=== PATIENT | female | born 1960 | race Caucasian/White ===

== ENCOUNTER 2016-08-22 11:41 | Inpatient (IN) | payer OTHER ==
--- NOTE | 2016-09-04 09:08 | HP ---
DATE OF CLINIC: 08/10/2016 VALENTINE GILBERT : 1960 PLANNED PROCEDURE: Left Total Knee Arthroplasty DATE OF SURGERY: September 05, 2016 SURGEON: Kyrie Chin M.D. HISTORY OF PRESENT ILLNESS Valentine Gilbert is a 56 year old female. * Medication list reviewed with patient allergy list reviewed with patient. This is a 56-year-old female referred over from [facility] [facility] for chronic bilateral knee pain. She has been seen by [facility] in the past. She had an arthroscopy on her left knee for partial meniscectomy. She has not had complete resolution of her symptoms. At this point she has activity limiting pain in her knee that has been recalcitrant to non-operative measures and is interested in pursuing definitive management. She rates her pain as bad as a 5-6/10 at times and it is worse with activity. After discussion and review of treatment options the patient has elected to proceed with surgery and presents today preoperatively. PAST MEDICAL AND SURGICAL HISTORY: Her past medical and surgical history are as documented. She had a previous partial medial meniscectomy and chondroplasty of the medial femoral condyle and medial patellar facet with Dr. Munoz in 2013. Otherwise medications and allergies are as documented. CURRENT MEDICATION * Atorvastatin Calcium 10 MG Tablet 1 once a day 30 days, 0 refills * BuPROPion HCl ER (XL) 150 MG Tablet Extended Release 24 Hour 1 once a day 90 days, 0 refills * Triamcinolone Acetonide 0.1 % Ointment as needed 30 days, 0 refills * Tylenol 8 Hour Arthritis Pain 650 MG Tablet Extended Release 2 twice a day 0 days, 0 refills * Vitamin C 500 MG Capsule 1 once a day 0 days, 0 refills * Vitamin D 1000 UNIT Tablet 1 twice a day 0 days, 0 refills * Wellbutrin SR 150 MG Tablet Extended Release 12 Hour 1 once a day 0 days, 0 refills PAST MEDICAL/SURGICAL HISTORY Reported: Medical: Cholesterol problems. History of Arthritis in knees. Surgical / Procedural: Prior surgery Hand- Long trigger finger release Apr 01 and Arthroscopy Left knee with partial medial meniscectomy and chondroplasty of medial femoral condyle & the medial patellar facet 04/07/[address] Alberto Munoz at [facility]. Negative past medical hx as of 02/16/14. SOCIAL HISTORY Behavioral: Never smoked. Smoking status: Never smoker. 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 Work: Occupation Contract Clerk. ALLERGIES * No Known Allergies FAMILY HISTORY 3 children living Family medical history Mother- Stroke Cancer father Osteoarthritis mother REVIEW OF SYSTEMS No recent constitutional symptoms to include fevers and chills. No recent cardiovascular symptoms to include chest pain or palpitations. No recent respiratory symptoms to include shortness of breath or recent infections. PHYSICAL FINDINGS * Vitals taken 08/10/2016 03:00 pm BP-Sitting R 120/74 mmHg Pulse Rate-Sitting 91 bpm Temp-Oral 98.4 F Height 64.5 in Weight 188 lbs 6.4 oz Body Mass Index 31.8 kg/m2 Body Surface Area 1.92 m2 Pain Level 4 Ears, Nose, Throat: * ENT: normal. Lungs: * Clear to auscultation. Cardiovascular: Heart Rate and Rhythm: * Normal. Abdomen: * Normal. Neurological: Motor: * Dominant Hand = Right Hand. Patient is a well-developed, well-nourished female in no acute distress. They are awake, alert and conversant throughout the encounter. CARDIOVASCULAR: Intact peripheral pulses on bilateral lower extremities. No significant edema on inspection of bilateral lower extremities. NEUROLOGIC: Patient had intact coordinated composite motion of the bilateral lower extremities and sensation intact to light touch in all distributions of bilateral lower extremities. PSYCHIATRIC: Patient was oriented to person, place and time and displayed appropriate mood and affect during the encounter. SKIN: Exam of the skin on bilateral lower extremities showed no significant scars, lesions, rashes or masses. FOCUSED MUSCULOSKELETAL EXAM: The patient ambulates without antalgia. She has normal resting station of the bilateral hips, knees, ankles today. Her left knee shows mild effusion, no erythema or ecchymosis. She has tenderness to palpation in the medial joint line and on patellar grind she has both mechanical symptoms and pain with patellar grind. She has a bit of valgus pseudo-laxity. She is stable to varus stress. She has negative anterior and posterior drawer. She is able to perform a straight leg raise. She has 5/5 strength in flexion and extension of the knee. A warm and well perfused leg distally with intact sensation and a normal resting tone. TESTS * Test: CULTURE, MRSA Report Date: 08/10/2016 CULTURE, MRSA See Report IMAGING: X-rays show arthritic changes of her medial compartment and patellofemoral compartment with some mild osteoarthritis and a varus malalignment. She has no fractures or dislocations. ASSESSMENT A 56-year-old female with activity limiting tricompartmental arthrosis of her left knee that has been recalcitrant to non-operative measures. PREVIOUS TESTS * Test: PROTHROMBIN TIME Report Date: 08/08/2016 PROTIME 10.7 s INR 1.02 * Test: PARTIAL THROMBOPLASTIN TIME Report Date: 08/08/2016 APTT 27.1 s * Test: URINALYSIS WITH MICROSCOPIC Report Date: 08/08/2016 EPITHELIAL CELL 1-2 WBC 2-3 GLUCOSE NEGATIVE BACTERIA RARE PH,URINE 6.0 SPEC. GRAVITY 1.010 KETONE NEGATIVE NITRITE NEGATIVE RBC 0-1 BLOOD TRACE BILIRUBIN NEGATIVE APPEARANCE HAZY PROTEIN NEGATIVE COLOR YELLOW LEUK ESTERASE 1+ UROBILINOGEN NORMAL * Test: COMPREHENSIVE METABOLIC PANEL Report Date: 08/08/2016 ALT/SGPT 24 U/L ALBUMIN 4.3 g/dL ALB/GLOB RATIO 1.4 BUN 15 mg/dL BUN/CREAT RATIO 21 High CALCIUM 9.9 mg/dL GLUCOSE 123 mg/dL High CREATININE 0.7 mg/dL SODIUM 137 meq/L POTASSIUM 3.7 meq/L CHLORIDE 101 meq/L CARBON DIOXIDE 30 meq/L ANION GAP 10 meq/L TOT PROTEIN 7.4 g/dL GLOBULIN 3.1 g/dL BILI,TOTAL 0.7 mg/dL AST/SGOT 22 U/L ALK PHOSPHATASE 61 U/L GFR 87 * Test: CBC NO DIFF Report Date: 08/08/2016 WBC 7.8 10*3/mL RBC 4.67 10*6/uL MCH 30.6 pg MCHC 34.2 g/dL RDW 12.3 % MCV 89.5 fL PLATELET COUNT 237 10*3/mL HCT 41.8 % HGB 14.3 g/L THERAPY * Patient not eligible for fall risk assessment. PLAN * Bilateral primary osteoarthritis of knee Physical Therapy: PT Felix Coffey Instructions: Post-op Rehab Left TKA 08/22/16 *Needs to start PT the wk of 08/27/16* TBS PTNW Alexx OxyCONTIN 10 MG T12A, Take 1 tablet by mouth every 12 hours for baseline pain control, 10 days, 0 refills OxyCODONE HCl 5 MG TABS, Take 1-2 tablets by mouth every 4 hours as needed for severe breakthrough pain, 14 days, 0 refills TraMADol HCl 50 MG TABS, Take 1-2 tablets by mouth ever 6 hours as needed for moderate breakthrough pain, 14 days, 0 refills * Total knee arthroplasty -Left CARE TEAM Jossie Abarca MD [facility] SURGICAL CONSENT We have discussed surgical options including left TKA and non-operative management. The patient was counseled in detail regarding the diagnosis, treatment options available, prognosis of each treatment option and the potential risks and complications. The risks of surgery include, but are not limited to, anesthetic , neurovascular complications, pulmonary embolism, deep vein thrombosis, wound dehiscence, failure of any or all of the discussed procedures, infection of the joint or surrounding soft tissue, need for revision surgery, chronic pain, limitations in activities of daily living, inability to return to work, and loss of normal range of motion or functional use of the extremity. There is the possibility of failure over time that may require additional operative or nonoperative treatment. The patient acknowledged that there are a number of perioperative risks not mentioned here and would still like to proceed. The patient is aware of and understands these risks, and wishes to proceed with the proposed surgical procedure and other procedures as indicated at the time of surgery. We will have the patient see their PCP for a preoperative medical risk assessment. The preoperative instructions were reviewed with the patient and all questions were answered. PB/sg
[2016-09-05] MEDS ORDERED: OXYCODONE HCL 10 MG TAB.SR PO ONE ×2 (06:30→06:58)
[2016-09-05] MEDS ORDERED: GABAPENTIN 600 MG TABLET PO ONE (06:30)
[2016-09-05] MEDS ORDERED: FAMOTIDINE 20 MG TABLET PO ONE (06:30)
[2016-09-05] MEDS ORDERED: CLONIDINE HCL 0.1 MG/24 HR (7 DAY PATCH) TD SCH (06:30)
[2016-09-05] MEDS ORDERED: TRAMADOL HCL 50 MG TABLET PO ONE (06:30)
[2016-09-05] MEDS ORDERED: CEFAZOLIN SODIUM 2 GRAM PREMIX 100 ML IV PRN (06:30)
[2016-09-05] MEDS ORDERED: ONDANSETRON 4 MG/2ML 2 ML VIAL IV ONE (06:30)
[2016-09-05] MEDS ORDERED: CELECOXIB 200 MG CAPSULE PO ONE (06:30)
[2016-09-05] MEDS ORDERED: LACTATED RINGERS 1,000 ML ONE (06:31)
[2016-09-05] MEDS ORDERED: IV START KIT ONE (06:31)
[2016-09-05] MEDS ORDERED: CEFAZOLIN SODIUM 2 GRAM PREMIX 100 ML IV ONE (06:32)
[2016-09-05] MEDS ORDERED: FAMOTIDINE 20 MG TABLET ONE (06:58)
[2016-09-05] MEDS ORDERED: ONDANSETRON 4 MG/2ML 2 ML VIAL ONE (06:58)
[2016-09-05] MEDS ORDERED: TRAMADOL HCL 50 MG TABLET ONE (06:58)
[2016-09-05] MEDS ORDERED: CLONIDINE HCL 0.1 MG/24 HR (7 DAY PATCH) TD ONE (06:59)
[2016-09-05] MEDS ORDERED: GABAPENTIN 600 MG TABLET ONE (06:59)
[2016-09-05] MEDS ORDERED: CELECOXIB 200 MG CAPSULE ONE (06:59)
[2016-09-05] MEDS ORDERED: ROPIVACAINE 0.2% 20 ML VIAL ONE (07:19)
[2016-09-05] MEDS ORDERED: NERVE BLOCK PROCEDURAL TRAY 1 EACH ONE (07:19)
[2016-09-05] MEDS ORDERED: MIDAZOLAM HCL 1 MG/ML 2ML VIAL ONE (07:32)
[2016-09-05] MEDS ORDERED: PROPOFOL 20 ML IV ONE ×4 (07:33→09:55)
[2016-09-05] MEDS ORDERED: SPINAL PROCEDURAL TRAY 1 EACH ONE (08:10)
[2016-09-05] MEDS ORDERED: BUPIVACAINE 0.75% SPINAL AMPUL 2 ML ONE (08:10)
[2016-09-05] MEDS ORDERED: POLYMYXIN B SULFATE 500,000 UNITS, BACITRACIN 25,000 UNITS in SODIUM CHLORIDE 3 L IRRIG... IR PRN (08:30)
[2016-09-05] MEDS ORDERED: TRANEXAMIC ACID 1,000 MG in SODIUM CHLORIDE 0.9% 100 ML IV PRN (08:30)
[2016-09-05] MEDS ORDERED: BUPIVACAINE 0.25% (MDV) 20 ML in SODIUM CHLORIDE 0.9% FLUSH 20 ML IF PRN (08:30)
[2016-09-05] MEDS ORDERED: BUPIVACAINE 0.25% (MDV) 24 ML, MORPHINE SULFATE 8 MG, EPINEPHRINE 0.3 MG in SODIUM CHLO... IF PRN (08:30)
[2016-09-05] MEDS ORDERED: LIDOCAINE 2% (PRES FREE) 5 ML VIAL ONE (08:40)
[2016-09-05] MEDS ORDERED: FENTANYL 100 MCG/2 ML VIAL ONE (08:40)
[2016-09-05] MEDS ORDERED: MORPHINE SULFATE 4 MG/ML SYRINGE IV PRN (09:01)
[2016-09-05] MEDS ORDERED: PROMETHAZINE HCL 25 MG/ML VIAL IM PRN (09:01)
[2016-09-05] MEDS ORDERED: ONDANSETRON 4 MG/2ML 2 ML VIAL IV PRN ×2 (09:01→11:33)
[2016-09-05] MEDS ORDERED: FENTANYL 100 MCG/2 ML VIAL IV PRN (09:01)
[2016-09-05] MEDS ORDERED: LACTATED RINGERS 1,000 ML IV SCH (09:15)
[2016-09-05] MEDS ORDERED: EPHEDRINE SULFATE UD SYR 25 MG 25 MG/5 ML SYRINGE IV ONE (09:52)
--- NOTE | 2016-09-05 10:34 | PCMBPN ---
Brief Post Op Note: Date of Procedure: 09/05/16 Start Time: 0900 Preoperative Diagnosis: 1. left knee osteoarthritis Postoperative Diagnosis: 1. Same Procedure: left total knee arthroplasty Surgeon: Kyrie Chin MD Assist: Ruben Zeng PA-C Anesthesia: Julio Cesar Jordan Findings: as above Condition: stable to PACU Complications: none IV Fluids: 2000 mLs of LR Urine Output: 200 mLs Estimated Blood Loss: 50 mLs Tourniquet Time: 39 minutes at 250 mm Hg Specimens: none Implants: [employer]uy Attune 6PS femur, 6RP tibia, 6mm insert, 35 mm anatomic patella Drains: none Kyrie Chin MD
[2016-09-05] MEDS ORDERED: ON-Q PUMP/ROPIVACAINE 0.2% 450 ML ONE (10:46)
[2016-09-05] MEDS: ON-Q PUMP/ROPIVACAINE 0.2% 450 ML in PREMIX BAG 1 EACH NB PRN (10:51)
[2016-09-05 11:33] VITALS: BMI 31.1
[2016-09-05] MEDS ORDERED: CALCIUM CARBONATE 500 MG TAB.CHEW PO PRN (11:33)
[2016-09-05] MEDS ORDERED: TRAZODONE HCL 50 MG TABLET PO PRN (11:33)
[2016-09-05] MEDS ORDERED: KETOROLAC TROMETHAMINE 30 MG/ML 1 ML VIAL IV PRN (11:33)
[2016-09-05] MEDS ORDERED: TRAMADOL HCL 50 MG TABLET PO PRN (11:33)
[2016-09-05] MEDS ORDERED: HYDROXYZINE PAMOATE 25 MG CAPSULE PO PRN (11:33)
[2016-09-05] MEDS ORDERED: HYDROMORPHONE HCL 0.5 MG/0.5 ML SYRINGE IV PRN (11:33)
--- NOTE | 2016-09-05 11:43 | RAD ---
KNEE LEFT 1 OR 2 VIEWS COMPARISON: Left knee 4 views, 05/01/2016 HISTORY: Postop left total knee arthroplasty. FINDINGS: Views: Left knee AP and lateral Bones: Normal. Joints: Satisfactory appearance of the left total knee arthroplasty. Soft tissues: Normal. IMPRESSION: Satisfactory appearance of the left total knee arthroplasty.
[2016-09-05] MEDS: ACETAMINOPHEN 500 MG TABLET PO SCH ×2 (12:24→17:28)
--- NOTE | 2016-09-05 12:51 | OP ---
Valentine JOHNSON : 1960 [id number] DATE OF SURGERY: August 26, 2016 PREOPERATIVE DIAGNOSIS: Left knee osteoarthritis. POSTOPERATIVE DIAGNOSIS: Left knee osteoarthritis. PROCEDURE PERFORMED: LEFT TOTAL KNEE ARTHROPLASTY. SURGEON: Kyrie Chin M.D. CIRCULATION REPRESENTATIVE: Canelo Zeng P.A.-C. SPECIMENS: No material was sent to the laboratory. ESTIMATED BLOOD LOSS: 50 mL. INTRAVENOUS FLUIDS: 2000 mL of crystalloid. URINE OUTPUT: 200 mL. TOURNIQUET TIME: 39 minutes at 300 mmHg. IMPLANTS: [employer] Attune 6 posterior stabilized femur, 6 rotating platform tibia, 6 mm rotating platform posterior stabilized poly insert and a 35 mm anatomic patella. DRAINS: No drains. INDICATIONS: This is a the [id number]-nom female with history and physical exam and radiographic findings consistent with left knee osteoarthritis. The patient has undergone a course of nonoperative measures without adequate relief of their symptoms. They desire definitive management in the form of a total knee arthroplasty. Risks, benefits and alternatives were discussed at length with the patient and they have elected to proceed. Preoperative clearances were performed and the patient was scheduled for surgery at the first available convenience. DESCRIPTION OF PROCEDURE: The patient was identified in the preoperative holding area where they were marked with indelible marker by the operating surgeon. The patient underwent ultrasound guided adductor canal block by the anesthesia provider. Patient was then taken to the operating room where they underwent a spinal anesthetic and was positioned supine on the operating room table. All bony prominences were padded and a well padded pre-calibrated nonsterile tourniquet was placed on the left upper thigh. Patient received perioperative antibiotics. The patient was prepped and draped in the usual sterile fashion for surgery. An operative time out was performed and confirmed by all members of the operative team. The leg was elevated and exsanguinated using an Esmarch bandage and the tourniquet was inflated at 300 mmHg. A standard anterior approach to the knee was utilized. Dissection was carried down to the fascia overlying the quadriceps and patellar tendons. A medial peripatellar arthrotomy was created. The infrapatellar and suprapatellar fat pads were excised along with medial and lateral menisci and the ACL and PCL. At this point the tourniquet was deflated. Retractors were placed to protect the collateral ligaments and the patella was slid laterally. The [employer] guide for the femur was brought onto the field and pinned in place. This was exchanged for our distal femoral cut block. We confirmed our resection levels and then made the resection with an oscillating saw. The knee was hyperflexed and the Tarlow retractor was placed to deliver the tibia from under the femur. The [employer] guide for the tibia was placed. Alignment was double checked with a set of drop rods. The guide was pinned in place and then exchanged for the proximal tibial cut guide. The resection level was again confirmed and the proximal tibial resection was made with an oscillating saw and completed with an osteotome and the proximal tibial resection piece was excised from the knee. At this point the retractors were removed and the knee was taken into extension and our extension block was checked and found to be satisfactory with a 6 mm annie. We returned our attention to the femur, pinning the 4-in-[address] using the previously drilled pins from the [employer] guide. We double checked our alignment here as well as our flexion space and we were satisfied with the position of the block. Anterior, posterior and chamfer cuts were made and all bony pieces were excised. The knee was taken into hyperflexion and posterior osteophytes were removed using an osteotome and a curette. Finally, the tibia was sized with a base plate, drilled and punched and then a trial tibia was placed. The box cut guide for the femur was pinned in place and our box cut for the posterior stabilized femoral component was made and then a trial femur was placed. The trial 6 mm insert was placed and the knee was taken through a range of motion. It was found to be stable in all planes and to have appropriate extension and flexion. The patella was everted and held with two towel clips. Its thickness was measured to 22 mm initially. It was resected back using a freehand technique to 13 mm thick and sized for a 35 mm patellar button. The peg holes were drilled and a trial patella was placed. The knee was taken through a range of motion. The patella was found to track midline with a no hands technique. At this point all trial implants were removed from the knee. The posterior capsule was inspected and it was confirmed that there were no significant bleeders. Then knee was elevated and exsanguinated using an Esmarch bandage and the tourniquet was reinflated. Cement was mixed on the back table while we performed our first posterior capsular injection and then copiously irrigated the bony surfaces with sterile saline. Our final implants were cemented in place and all excess cement was removed from the knee. The knee was held in extension with a clamp on the patella while the cement dried. A final inspection was made of the knee after the cement was dry and the tourniquet was deflated. There were no significant bleeders and no residual cement or bony bodies within the knee. The knee was once again copiously irrigated with sterile saline and then a closure was performed using #0 Quill for the capsule, #2-0 Vicryl for the subcutaneous tissues and ludy in the skin. A sterile dressing of Xeroform, fluffs, ABD's, web roll and an KIERRA bandage was applied. The drapes were removed. The patient was awakened from anesthesia. Patient was then transferred to a stretcher and taken postoperatively to the post anesthesia care unit in stable condition. There were no observed intraoperative complications during this procedure. Job [id number] Cc: Mike Matos
[2016-09-05] MEDS ORDERED: PUMP TUBING ONE (13:42)
[2016-09-05] MEDS: D5 1/2NS with 20 mEq KCL 1,000 ML IV SCH ×2 (13:46→22:12)
[2016-09-05] MEDS: CEFAZOLIN SODIUM 2 GRAM DUPLEX 2 G in Premix (D5W) 50 ml 1 EACH IV SCH (16:18)
[2016-09-05] MEDS: OXYCODONE HCL 5 MG TABLET PO PRN (19:53)
[2016-09-05] MEDS: OXYCODONE HCL 10 MG TAB.SR PO SCH (22:00)
[2016-09-05] MEDS: ASCORBIC ACID 500 MG TABLET PO SCH (22:00)
[2016-09-05] MEDS: DOCUSATE SODIUM 100 MG CAPSULE PO SCH (22:00)
[2016-09-06] MEDS: ACETAMINOPHEN 500 MG TABLET PO SCH ×3 (01:28→11:22)
[2016-09-06] MEDS: CEFAZOLIN SODIUM 2 GRAM DUPLEX 2 G in Premix (D5W) 50 ml 1 EACH IV SCH (01:28)
[2016-09-06] MEDS: OXYCODONE HCL 5 MG TABLET PO PRN ×3 (01:33→14:51)
[2016-09-06] MEDS: D5 1/2NS with 20 mEq KCL 1,000 ML IV SCH (04:18)
[2016-09-06] MEDS ORDERED: REMOVE PATCH 1 EACH UNIT TD SCH (06:30)
[2016-09-06 07:12] LABS: HEMATOCRIT 32.1 % (37.0-47.0); HEMOGLOBIN 10.8 gm/l (12.0-16.0); MEAN CELL VOLUME 91.2 fl (81.0-99.0); MEAN CORPUSCULAR HEMOGLOBIN 30.7 pg (27.0-31.0); MEAN CORPUSCULAR HGB CONC 33.6 g/dl (33.0-37.0); RED CELL DISTRIBUTION WIDTH 12.7 % (11.5-14.5)
[2016-09-06 07:34] LABS: CALCIUM 8.4 mg/dL (8.6-10.3)
[2016-09-06] MEDS: ON-Q PUMP/ROPIVACAINE 0.2% 450 ML in PREMIX BAG 1 EACH NB PRN ×2 (07:51→10:31)
[2016-09-06] MEDS: DOCUSATE SODIUM 100 MG CAPSULE PO SCH (08:25)
--- NOTE | 2016-09-06 08:25 | PDOC43 ---
- Subjective Findings: POD1 Left TKA. No new complaint today. Subjective: Reports Pain Tolerable, Denies Chest Pain, Denies Shortness of Breath, Denies Nausea, Denies Vomiting - Objective Vital Signs Temperature 98.8 F 09/06/16 07:30 Pulse Rate 75 09/06/16 07:30 Respiratory Rate 20 09/06/16 07:30 Blood Pressure 95/56 09/06/16 07:30 O2 Saturation by Pulse Oximetry 98 09/06/16 03:28 Oxygen Delivery Method Nasal Cannula Oxygen Flow Rate 2 Laboratory 09/06/16 06:10 09/06/16 06:10 09/06/16 06:10 RBC 3.52 L BUN 6 L Estimated GFR 103 H Calcium 8.4 L Active Medication Orders Category Date Time Status Acetaminophen [Tylenol] Med 09/05/16 11:33 Active 1,000 mg PO Q6H Ascorbic Acid [Vitamin C] Med 09/05/16 21:00 Active 500 mg PO BID Aspirin (Enteric Coated) [Ecotrin] Med 09/06/16 09:00 Active 325 mg PO DAILY Bisacodyl [Dulcolax] Med 09/08/16 10:26 Active 10 mg [place] DAILY PRN Calcium Carbonate [Tums] Med 09/05/16 11:33 Active 1,000 - 2,000 mg PO Q2H PRN Docusate Sodium [Colace] Med 09/05/16 21:00 Active 100 mg PO BID Hydromorphone HCl [Dilaudid] Med 09/05/16 11:33 Active 0.5 mg IV Q1H PRN Hydroxyzine Pamoate [Vistaril] Med 09/05/16 11:33 Active 25 - 50 mg PO Q4H PRN Ketorolac Tromethamine [Toradol] Med 09/05/16 11:33 Active 30 mg IV Q6H PRN Magnesium Hydroxide [Milk of Magnesia] Med 09/06/16 10:26 Active 30 ml PO DAILY PRN Multivitamins [One-A-Day] Med 09/06/16 09:00 Active 1 tab PO DAILY On-Q Pump/Ropivacaine 0.2% 450 ml Med 09/05/16 09:01 Active Premix Bag [Premix Fluid] 1 each NB Q50H Ondansetron 4 mg/2ml Vial [Zofran] Med 09/05/16 11:33 Active 4 - 6 mg IV Q6H PRN Oxycodone HCl [Roxicodone] Med 09/05/16 11:33 Active 5 - 10 mg PO Q4H PRN Oxycodone Sr [Oxycontin] Med 09/05/16 21:00 Active 10 mg PO Q12HR Remove Patch Med 09/06/16 10:26 Once 1 each TD X1 ONE Sodium Chloride 0.9% Flush [Normal Saline 10ml Flush] Med 09/05/16 11:33 Active 10 - 50 ml IV PRN PRN Sodium Chloride 0.9% Flush [Normal Saline 10ml Flush] Med 09/05/16 12:20 Active 10 ml IV PRN PRN Sodium Chloride 0.9% Flush [Normal Saline 10ml Flush] Med 09/05/16 17:00 Active 10 ml IV Q8HR Tramadol HCl [Ultram] Med 09/05/16 11:33 Active 50 mg PO Q6H PRN Trazodone HCl [Desyrel] Med 09/05/16 11:33 Active 25 mg PO BEDTIME PRN Intake and Output 09/04/16 09/05/16 09/06/16 23:59 23:59 23:59 Intake Total 4135 2544 Output Total 700 2050 Balance 3435 494 General: Afebrile Lungs: Normal Air Movement Skin: Normal Color, Warm, Dry - Left Lower Extremity Incision: Dressing Clean/Dry/Intact Motor: Extensor Hallucis Longus: 5/5, Tibialis Anterior: 5/5, Gastrocnemius: 5/5 , Peroneals: 4/5, Quadriceps: 4/5 Gross Sensation to Light Touch: Present: Deep Peroneal Nerve, Superficial Peroneal Nerve - Problems (1) Status post total left knee replacement Status: Acute - Additional Comments POD1 LEFT TKA. No new complaint. 1. Physical Therapy: WBAT with [facility]. Possible discharge home today if doing well. 2. Pain Control: Multimodal pain control as needed. 3. DVT Prophylaxis: ASA 325 daily, mobilization. 4. Disposition: Possible discharge home this afternoon if doing well with PT. 5. Medical Issues: No new medical problems.
[2016-09-06] MEDS: ASCORBIC ACID 500 MG TABLET PO SCH (08:26)
[2016-09-06] MEDS: OXYCODONE HCL 10 MG TAB.SR PO SCH (08:26)
[2016-09-06] MEDS ORDERED: ASPIRIN (ENTERIC COATED) 325 MG TABLET.EC PO SCH (09:00)
[2016-09-06] MEDS ORDERED: MULTIVITAMINS 1 TAB TABLET PO SCH (09:00)
[2016-09-06] MEDS ORDERED: MAGNESIUM HYDROXIDE 30 ML UDCUP PO PRN (10:26)
[2016-09-06] MEDS ORDERED: REMOVE PATCH 1 EACH UNIT TD ONE (10:26)
[2016-09-06 11:28] VITALS: BP 100/62
[2016-09-08] MEDS ORDERED: BISACODYL 10 MG SUP PR PRN (10:26)
--- NOTE | 2016-09-17 18:18 | PDOC5 ---
ADMIT DATE: 09/05/16 DISCHARGE DATE: 09/06/16 ADMISSION DIAGNOSES: left knee osteoarthritis PROCEDURES PERFORMED THIS HOSPITALIZATION: left total knee arthroplasty SURGEON:Kyrie Chin MD CONSULTATIONS: PT/OT/Care Mgmt BRIEF HISTORY:This is a 56 year old female patient with activity-limiting left knee osteoarthritis which has failed to respond adequately to a course of nonoperative measures. After a discussion of the risks, benefits, and alternatives of ongoing therapies, patient elected to proceed with left total knee arthroplasty. The patient underwent standard preoperative clearance and education, and presented to the hospital on the scheduled date for surgery. BRIEF HOSPITAL COURSE: Patient tolerated the procedure without complication and was admitted postoperatively for observation, pain control, and rehabilitation. Patient had an uncomplicated hospital course; see daily notes for details. On POD#1 patient met all criteria for discharge and was discharged home with family assistance. Follow-up appointments for outpatient Physical Therapy and Orthopedics were provided at the time of discharge. Patient restarted preoperative medications, and received prescriptions for . Kyrie Chin MD - Discharge Plan Disposition: Home Additional Instructions: PROCEDURE: Left total knee arthroplasty (replacement) 1.) Dressings: may remove dressings on POD#4 and shower normally, let water run over incision and pat dry, but do not submerge or scrub incision. Cover with clean dressing and then change dressing every 2 days until completely dry. 2.) Activity: may bear weight as tolerated with assistive device as needed, brace in place at all times for first 6 weeks. Outpatient PT as previously scheduled. Daily exercises as instructed by PT. 3.) Medications: a.) Oxycontin: long-acting pain medication taken morning and evening for 10 days, no refills b.) Tramadol: as-needed pain medication for mild to moderate breakthrough pain (call for refills 3-4 days before running out) c.) Oxycodone: as-needed pain medication for severe breakthrough pain (call for refills 3-4 days before running out) d.) Aspirin: blood thinner to reduce risk of clots, 325 mg taken daily for 30 days e.) Colace: stool softener to help prevent constipation, taken twice a day as long as you are on narcotics; if you have not had a bowel movement by Saturday , get [id number] Magnesium Citrate from [employer] or [employer], and use per instructions twice a day until constipation resolves. 4.) Followup: 09/17/16 at 9:45 AM with my PA, Ruben Zeng at [facility]. Call [phone] to confirm time and location. 5.) Questions: Call my office with any questions or concerns- [phone]. Go to ED or call 911 for any acute changes in health status or emergencies. Kyrie Chin MD Follow-Up: PT Felix Holloway [Other] - 09/10/16 10:00 am Canelo Zeng PA [Physician Weekend Anchor] - 09/17/16 9:45 am
== END 2016-09-06 15:20 | disposition home or self-care (01) | DRG 470 ==
LOC: OR 09-05 06:28 → MS 09-05 11:50
PROVIDERS: ADMIT Orthopaedic Surgery; ATTEND Orthopaedic Surgery
PROC: 0SRD0J9 Replacement of Left Knee Joint with Synthetic Substitute, Cemented, Open Approach (ICD-10-PCS; principal; 2016-09-05)
DX: M17.12 Unilateral primary osteoarthritis, left knee (principal)